=== PATIENT | male | born 1975 | race Caucasian/White ===

== ENCOUNTER 2020-04-23 15:16 | Emergency (ER) | payer SELFPAY ==
[2020-04-23 15:21] VITALS: BP 124/71; PULSE 98; TEMP 97.8; BMI 28.0
--- NOTE | 2020-04-23 15:35 | PDOC ---
History of Present Illness - General Chief Complaint: RX Refill Stated Complaint: SENT BY PCP Time Seen by Provider: 04/23/20 15:21 History Source: Patient Exam Limitations: No Limitations - History of Present Illness Initial Comments: 04/23/20 15:29 45 year old male with pmhx of opioid abuse. Presented to the ED complaining of missing his methadone clinic appointment. Patient states that due to family issues he was not able to receive his 30mg methadone from the clinic this morning. Patient is requesting methadone. Patient did not have his methadone clinic ID card with him. Pt otherwise denies: fevers, chills, syncope, lightheadedness, dizziness, headaches, neck pain, chest pain, shortness of breath, palpitations, back pain, abdominal pain, nausea, vomiting, diarrhea, constipation. 04/23/20 20:49 Past History - Medical History Allergies/Adverse Reactions: Allergies Allergy/AdvReac Type Severity Reaction Status Date / Time No Known Allergies Allergy Verified 04/23/20 15:19 Home Medications: Ambulatory Orders Ibuprofen 800 mg PO Q8H PRN #12 tablet 11/01/19 COPD: No - Psycho-Social/Smoking History Smoking History: Current every day smoker Number of Cigarettes Smoked Daily: 10 Information on smoking cessation initiated: No - Substance Abuse Hx (Audit-C & DAST Scrn) How often the patient has a drink containing alcohol: Never Score: In Men: 4 or > Positive; In Women: 3 or > Positive: 0 Screen Result (Pos requires Nsg. Audit-10AR): Negative In the last yr the pt used illegal drug/Rx for NonMed reason: No Score: Yes response is considered Positive: 0 Screen Result (Positive result requires Nsg. DAST-10): Negative *Physical Exam - Vital Signs Last Vital Signs Temp Pulse Resp BP Pulse Ox 97.8 F 98 H 18 124/71 99 04/23/20 15:19 04/23/20 15:19 04/23/20 15:19 04/23/20 15:19 04/23/20 15:19 - Physical Exam 04/23/20 15:35 Gen: AAOx 3, no acute distress, comfortable, no signs of respiratory distress HENT: atraumatic, normocephalic with no laceration or contusion. Nasal mucosa without erythema. Oropharynx without erythema or exudates. Mucous membranes moist. EYES: PERRL, EOM intact, conjunctiva pink NECK: supple; trachea midline; no JVD, no lymphadenopathy, or thyromegaly CV: RRR no murmurs, gallops, or rubs. CHEST: CTA b/l no wheezing, rales or rhonchi ABD: +BS/ND. no TTP; soft, no rebound, no guarding EXTREMITY: no cyanosis or erythema. 2+ dorsalis pedis, posterior tibial, and radial pulse. No pedal edema; no calf swelling or tenderness SKIN: no rash, warm and dry, no diaphoresis HEME: no purpura or ecchymosis NEURO: normal speech, CN II-XII intact, sensation intact, normal gait, no cerebellar deficits MS: 5/5 strength in all extremities, FROM intact in all extremities. Medical Decision Making - Medical Decision Making 04/23/20 15:35 45-year-old male requesting methadone Vital signs stable Several attempts made to contact methadone clinic but they were closed I am unable to verify the patient's dose and whether or not he received it today. There is no acute intervention warranted in the ED at this time Patient instructed to follow-up with the methadone clinic tomorrow Pt appears well and is safe and stable for discharge with strict return precautions including signs and symptoms requring immediate return to the ED Supportive care instructions explained and given to pt. Reasons to return emergently to ER explained and given. Importance of follow up with PMD and other specialists as indicated stressed to pt. Pt verbalized understanding of instructions. Pt to follow up with PMD in 2 days. Discharge - Discharge Information Problems reviewed: Yes Clinical Impression/Diagnosis: Medication refill Condition: Stable Disposition: HOME - Follow up/Referral - Patient Discharge Instructions Patient Printed Discharge Instructions: Methadone Additional Instructions: PLEASE GO TO YOUR CLINIC APPOINTMENT TOMORROW - Post Discharge Activity
[2020-04-23] MEDS ORDERED: ONDANSETRON 4 MG TABLET PO ONE ×2 (15:53→15:54)
== END 2020-04-23 15:56 | disposition home or self-care (01) ==
LOC: JERFT 15:16
DX: Z76.0 Encounter for issue of repeat prescription (principal)
CPT/HCPCS: 99281-25

== ENCOUNTER 2022-02-03 12:13 | Inpatient (IN) | payer OTHER ==
[2022-02-03 12:58] VITALS: BMI 28.1
[2022-02-03] MEDS ORDERED: BISMUTH SUBSALICYLATE 262 MG/15 ML BTL PO PRN (13:23)
[2022-02-03] MEDS ORDERED: NALOXONE HCL (KLOXXADO) 8 MG SPRAY NS PRN (13:23)
[2022-02-03] MEDS ORDERED: MAG HYDROX/AL HYDROX/SIMETH 30 ML UNIT-DOSE CUP PO PRN (13:23)
[2022-02-03] MEDS ORDERED: MAGNESIUM CITRATE 300 ML BOTTLE PO PRN (13:23)
[2022-02-03] MEDS ORDERED: ONDANSETRON *ODT* 4 MG TABLET SL PRN (13:23)
[2022-02-03] MEDS ORDERED: DICYCLOMINE HCL 10 MG CAPSULE PO PRN (13:23)
[2022-02-03] MEDS ORDERED: IBUPROFEN 400 MG TABLET (FP) PO PRN (13:23)
[2022-02-03] MEDS ORDERED: LOPERAMIDE HCL 2 MG CAPSULE PO PRN (13:23)
[2022-02-03] MEDS ORDERED: cloNIDine HCL 0.1 MG TABLET PO PRN (13:23)
[2022-02-03] MEDS ORDERED: MAGNESIUM HYDROX 2400MG/30ML ORAL SUSPENSION 30 ML CUP PO PRN (13:23)
[2022-02-03] MEDS ORDERED: NICOTINE 10 MG CARTRIDGE (INHALER) IH PRN (13:23)
[2022-02-03] MEDS ORDERED: NICOTINE POLACRILEX 2 MG GUM BUC PRN (13:23)
[2022-02-03] MEDS ORDERED: IBUPROFEN 600 MG TABLET (FP) PO PRN (13:23)
[2022-02-03] MEDS ORDERED: BENZOCAINE/MENTHOL (CHLORASEPTIC ) LOZENGE MM PRN (13:23)
[2022-02-03] MEDS ORDERED: diazePAM 5 MG TABLET PO PRN (13:23)
[2022-02-03] MEDS ORDERED: methaDONE HCL 10 MG TABLET (FOR DETOX USE ONLY) PO ONE (13:23)
[2022-02-03] MEDS ORDERED: ACETAMINOPHEN 325 MG TABLET (FP) PO PRN ×2 (13:23)
[2022-02-03] MEDS: THIAMINE HCL 100 MG TABLET (FP) PO SCH (22:54)
[2022-02-03] MEDS: MELATONIN 5 MG TABLETS PO SCH (22:54)
[2022-02-03] MEDS: diazePAM 5 MG TABLET PO SCH ×2 (22:54→23:31)
[2022-02-03] MEDS: hydrOXYzine PAMOATE 25 MG CAPSULE (FP) PO SCH ×2 (22:55→23:32)
[2022-02-04] MEDS: diazePAM 5 MG TABLET PO SCH ×4 (07:22→23:08)
[2022-02-04] MEDS: hydrOXYzine PAMOATE 25 MG CAPSULE (FP) PO SCH ×5 (07:22→23:08)
[2022-02-04] MEDS ORDERED: methaDONE HCL 10 MG TABLET PO ONE (08:24)
[2022-02-04] MEDS ORDERED: methaDONE 40 MG, methaDONE 20 MG PO ONE (09:15)
[2022-02-04] MEDS ORDERED: methaDONE HCL 10 MG TABLET ONE (09:43)
[2022-02-04] MEDS ORDERED: methaDONE HCL 40 MG DISPERSABLE TABLET ONE (09:43)
[2022-02-04] MEDS: PRENATAL VITAMINS W/ FOLIC ACID TABLET (FP) PO SCH (10:20)
[2022-02-04 10:43] LABS: CALCIUM 9.2 mg/dL (8.5-10.1); HEMATOCRIT 40.8 % (35.4-49); HEMOGLOBIN 13.3 GM/dL (11.7-16.9); MCH 27.5 pg (25.7-33.7); MCHC 32.7 g/dl (32.0-35.9); MEAN CELL VOLUME 84.1 fl (80-96); MEAN PLT VOLUME 9.6 fl (7.5-11.1); PLATELET COUNT 241 10^3/uL (134-434); RBC 4.85 M/mm3 (4.00-5.60); RDW 14.1 % (11.9-15.9); WHITE BLOOD COUNT 5.1 K/mm3 (4.0-10.0)
[2022-02-04 10:44] LABS: ALBUMIN 3.6 g/dl (3.4-5.0); BLOOD UREA NITROGEN 15.2 mg/dL (7-18)
[2022-02-04 10:47] LABS: CREATININE 0.7 mg/dL (0.55-1.3)
[2022-02-04 10:48] LABS: BILIRUBIN,TOTAL 0.5 mg/dL (0.2-1); TOT PROT 7.6 g/dl (6.4-8.2)
[2022-02-04] MEDS ORDERED: PENICILLIN G BENZATHINE 2,400,000 UNIT/4 ML PFS IM ONE (11:09)
[2022-02-04] MEDS: MELATONIN 5 MG TABLETS PO SCH (23:09)
[2022-02-04] MEDS: THIAMINE HCL 100 MG TABLET (FP) PO SCH (23:09)
[2022-02-05] MEDS: diazePAM 5 MG TABLET PO SCH ×3 (06:04→22:41)
[2022-02-05] MEDS: hydrOXYzine PAMOATE 25 MG CAPSULE (FP) PO SCH ×5 (06:04→22:42)
[2022-02-05] MEDS: METHOCARBAMOL 500 MG TABLET PO PRN (09:22)
[2022-02-05] MEDS ORDERED: methaDONE HCL 10 MG TABLET (FOR DETOX USE ONLY) PO ONE (10:00)
[2022-02-05] MEDS: PRENATAL VITAMINS W/ FOLIC ACID TABLET (FP) PO SCH (10:35)
[2022-02-05] MEDS: THIAMINE HCL 100 MG TABLET (FP) PO SCH (22:42)
[2022-02-05] MEDS: MELATONIN 5 MG TABLETS PO SCH (22:42)
[2022-02-06] MEDS: METHOCARBAMOL 500 MG TABLET PO PRN ×2 (06:19→11:23)
[2022-02-06] MEDS: diazePAM 5 MG TABLET PO SCH ×2 (06:19→17:59)
[2022-02-06] MEDS: hydrOXYzine PAMOATE 25 MG CAPSULE (FP) PO SCH ×4 (06:19→17:59)
[2022-02-06] MEDS ORDERED: methaDONE HCL 10 MG TABLET PO SCH (07:45)
[2022-02-06] MEDS ORDERED: methaDONE HCL 40 MG DISPERSABLE TABLET ONE (08:00)
[2022-02-06] MEDS ORDERED: methaDONE HCL 10 MG TABLET ONE (08:00)
[2022-02-06] MEDS: methaDONE 40 MG, methaDONE 20 MG PO SCH (08:01)
[2022-02-06] MEDS: PRENATAL VITAMINS W/ FOLIC ACID TABLET (FP) PO SCH (11:04)
[2022-02-07] MEDS: MELATONIN 5 MG TABLETS PO SCH (00:17)
[2022-02-07] MEDS: hydrOXYzine PAMOATE 25 MG CAPSULE (FP) PO SCH ×3 (00:17→09:56)
[2022-02-07] MEDS: THIAMINE HCL 100 MG TABLET (FP) PO SCH (00:18)
[2022-02-07] MEDS ORDERED: methaDONE HCL 10 MG TABLET ONE (04:36)
[2022-02-07] MEDS ORDERED: methaDONE HCL 40 MG DISPERSABLE TABLET ONE (04:36)
[2022-02-07] MEDS ORDERED: diazePAM 5 MG TABLET PO ONE (06:00)
[2022-02-07] MEDS: methaDONE 40 MG, methaDONE 20 MG PO SCH (06:30)
[2022-02-07 09:27] VITALS: BP 124/71; PULSE 68; TEMP 96.9
[2022-02-07] MEDS: PRENATAL VITAMINS W/ FOLIC ACID TABLET (FP) PO SCH (09:56)
[2022-02-07] MEDS ORDERED: methaDONE HCL 10 MG TABLET (FOR DETOX USE ONLY) PO ONE (10:00)
== END 2022-02-07 10:40 | disposition home or self-care (01) | DRG 773 ==
LOC: YASAS 12:13 → Y6N 17:18
PROVIDERS: ADMIT Allergy & Immunology; ATTEND Surgery
PROC: HZ2ZZZZ Detoxification Services for Substance Abuse Treatment (ICD-10-PCS; principal; 2022-02-03)
DX: F10.230 Alcohol dependence with withdrawal, uncomplicated (principal); F13.20 Sedative, hypnotic or anxiolytic dependence, uncomplicated; F11.20 Opioid dependence, uncomplicated; F14.20 Cocaine dependence, uncomplicated; F17.210 Nicotine dependence, cigarettes, uncomplicated; F41.1 Generalized anxiety disorder; F32.A Depression, unspecified; Z86.19 Personal history of other infectious and parasitic diseases
CPT/HCPCS: 36415; 80053; 82962; 85027; 86593; 86780; 93005; 93010; C9803-CS; U0003; U0005

== ENCOUNTER 2022-02-07 11:30 | Inpatient (IN) | payer OTHER ==
[2022-02-07] MEDS ORDERED: MAGNESIUM CITRATE 300 ML BOTTLE PO PRN (12:21)
[2022-02-07] MEDS ORDERED: guaiFENesin 200 MG/10 ML 10 ML UNIT-DOSE CUPS PO PRN (12:21)
[2022-02-07] MEDS ORDERED: NICOTINE POLACRILEX 2 MG GUM BUC PRN (12:21)
[2022-02-07] MEDS ORDERED: P-EPHED 60MG/TRIPROLIDI 2.5MG TABLET PO PRN (12:21)
[2022-02-07] MEDS ORDERED: MAGNESIUM HYDROX 2400MG/30ML ORAL SUSPENSION 30 ML CUP PO PRN (12:21)
[2022-02-07] MEDS ORDERED: MAG HYDROX/AL HYDROX/SIMETH 30 ML UNIT-DOSE CUP PO PRN (12:21)
[2022-02-07] MEDS: MELATONIN 5 MG TABLETS PO SCH (21:03)
[2022-02-07] MEDS: THIAMINE HCL 100 MG TABLET (FP) PO SCH (21:03)
[2022-02-07] MEDS: ACETAMINOPHEN 325 MG TABLET (FP) PO PRN (21:04)
[2022-02-08] MEDS ORDERED: methaDONE HCL 10 MG TABLET ONE (05:15)
[2022-02-08] MEDS ORDERED: methaDONE HCL 40 MG DISPERSABLE TABLET ONE (05:16)
[2022-02-08] MEDS ORDERED: methaDONE HCL 40 MG DISPERSABLE TABLET PO SCH (06:00)
[2022-02-08] MEDS: methaDONE 40 MG, methaDONE 20 MG PO SCH (06:39)
[2022-02-08] MEDS: ACETAMINOPHEN 325 MG TABLET (FP) PO PRN ×2 (06:59→17:49)
[2022-02-08] MEDS: PRENATAL VITAMINS W/ FOLIC ACID TABLET (FP) PO SCH (10:06)
[2022-02-08] MEDS: NICOTINE 7 MG/24 HOURS TOPICAL PATCH TD SCH (10:07)
[2022-02-08] MEDS: hydrOXYzine PAMOATE 25 MG CAPSULE (FP) PO PRN ×2 (10:07→17:57)
[2022-02-08] MEDS: THIAMINE HCL 100 MG TABLET (FP) PO SCH (21:14)
[2022-02-08] MEDS: MELATONIN 5 MG TABLETS PO SCH (21:14)
[2022-02-09] MEDS: ACETAMINOPHEN 325 MG TABLET (FP) PO PRN (00:28)
[2022-02-09] MEDS ORDERED: methaDONE HCL 40 MG DISPERSABLE TABLET ONE (03:13)
[2022-02-09] MEDS ORDERED: methaDONE HCL 10 MG TABLET ONE (03:13)
[2022-02-09] MEDS: methaDONE 40 MG, methaDONE 20 MG PO SCH (06:28)
[2022-02-09] MEDS: NICOTINE 7 MG/24 HOURS TOPICAL PATCH TD SCH (09:57)
[2022-02-09] MEDS: hydrOXYzine PAMOATE 25 MG CAPSULE (FP) PO PRN ×2 (09:59→21:01)
[2022-02-09] MEDS: IBUPROFEN 400 MG TABLET (FP) PO PRN ×2 (09:59→21:01)
[2022-02-09] MEDS: PRENATAL VITAMINS W/ FOLIC ACID TABLET (FP) PO SCH (10:00)
[2022-02-09] MEDS: NICOTINE 10 MG CARTRIDGE (INHALER) IH PRN (14:40)
[2022-02-09] MEDS: THIAMINE HCL 100 MG TABLET (FP) PO SCH (21:00)
[2022-02-09] MEDS: MIRTAZAPINE 15 MG TABLET (FP) PO SCH (21:01)
[2022-02-10] MEDS ORDERED: methaDONE HCL 40 MG DISPERSABLE TABLET ONE (03:20)
[2022-02-10] MEDS ORDERED: methaDONE HCL 10 MG TABLET ONE (03:20)
[2022-02-10] MEDS: methaDONE 40 MG, methaDONE 20 MG PO SCH (07:22)
[2022-02-10] MEDS: PRENATAL VITAMINS W/ FOLIC ACID TABLET (FP) PO SCH (10:49)
[2022-02-10] MEDS: NICOTINE 7 MG/24 HOURS TOPICAL PATCH TD SCH (10:49)
[2022-02-10] MEDS: THIAMINE HCL 100 MG TABLET (FP) PO SCH (21:41)
[2022-02-10] MEDS: MIRTAZAPINE 15 MG TABLET (FP) PO SCH (21:41)
[2022-02-10] MEDS: hydrOXYzine PAMOATE 25 MG CAPSULE (FP) PO PRN (21:42)
[2022-02-11] MEDS ORDERED: methaDONE HCL 10 MG TABLET ONE (04:05)
[2022-02-11] MEDS ORDERED: methaDONE HCL 40 MG DISPERSABLE TABLET ONE (04:06)
[2022-02-11] MEDS: methaDONE 40 MG, methaDONE 20 MG PO SCH (07:02)
[2022-02-11] MEDS: hydrOXYzine PAMOATE 25 MG CAPSULE (FP) PO PRN ×2 (09:45→21:26)
[2022-02-11] MEDS: PRENATAL VITAMINS W/ FOLIC ACID TABLET (FP) PO SCH (09:45)
[2022-02-11] MEDS: NICOTINE 7 MG/24 HOURS TOPICAL PATCH TD SCH (09:45)
[2022-02-11] MEDS ORDERED: PENICILLIN G BENZATHINE 2,400,000 UNIT/4 ML PFS IM ONE (12:17)
[2022-02-11] MEDS: NICOTINE 10 MG CARTRIDGE (INHALER) IH PRN (12:46)
[2022-02-11] MEDS: THIAMINE HCL 100 MG TABLET (FP) PO SCH (21:25)
[2022-02-11] MEDS: MIRTAZAPINE 15 MG TABLET (FP) PO SCH (21:26)
[2022-02-12] MEDS: LOPERAMIDE HCL 2 MG CAPSULE PO PRN ×2 (01:56→10:49)
[2022-02-12] MEDS ORDERED: methaDONE HCL 10 MG TABLET ONE (03:12)
[2022-02-12] MEDS ORDERED: methaDONE HCL 40 MG DISPERSABLE TABLET ONE (03:12)
[2022-02-12] MEDS ORDERED: TRIMETHOBENZAMIDE HCL 200MG/2ML INJ IM ONE (07:30)
[2022-02-12] MEDS: methaDONE 40 MG, methaDONE 20 MG PO SCH (10:49)
[2022-02-12] MEDS: NICOTINE 7 MG/24 HOURS TOPICAL PATCH TD SCH (10:50)
[2022-02-12] MEDS: PRENATAL VITAMINS W/ FOLIC ACID TABLET (FP) PO SCH (10:50)
[2022-02-12] MEDS: hydrOXYzine PAMOATE 25 MG CAPSULE (FP) PO PRN (22:01)
[2022-02-12] MEDS: MIRTAZAPINE 15 MG TABLET (FP) PO SCH (22:01)
[2022-02-12] MEDS: THIAMINE HCL 100 MG TABLET (FP) PO SCH (22:01)
[2022-02-13] MEDS ORDERED: methaDONE HCL 10 MG TABLET ONE (03:55)
[2022-02-13] MEDS ORDERED: methaDONE HCL 40 MG DISPERSABLE TABLET ONE (03:55)
[2022-02-13] MEDS: methaDONE 40 MG, methaDONE 20 MG PO SCH (06:05)
[2022-02-13] MEDS: NICOTINE 7 MG/24 HOURS TOPICAL PATCH TD SCH (09:54)
[2022-02-13] MEDS: PRENATAL VITAMINS W/ FOLIC ACID TABLET (FP) PO SCH (10:06)
[2022-02-13] MEDS: hydrOXYzine PAMOATE 25 MG CAPSULE (FP) PO PRN ×2 (14:14→21:09)
[2022-02-13] MEDS: THIAMINE HCL 100 MG TABLET (FP) PO SCH (21:08)
[2022-02-13] MEDS: MIRTAZAPINE 15 MG TABLET (FP) PO SCH (21:08)
[2022-02-14] MEDS ORDERED: methaDONE HCL 10 MG TABLET ONE (03:31)
[2022-02-14] MEDS ORDERED: methaDONE HCL 40 MG DISPERSABLE TABLET ONE (03:31)
[2022-02-14] MEDS: methaDONE 40 MG, methaDONE 20 MG PO SCH (06:08)
[2022-02-14] MEDS: PRENATAL VITAMINS W/ FOLIC ACID TABLET (FP) PO SCH (10:04)
[2022-02-14] MEDS: hydrOXYzine PAMOATE 25 MG CAPSULE (FP) PO PRN ×2 (10:04→21:15)
[2022-02-14] MEDS: NICOTINE 7 MG/24 HOURS TOPICAL PATCH TD SCH (10:04)
[2022-02-14] MEDS: NICOTINE 10 MG CARTRIDGE (INHALER) IH PRN (19:43)
[2022-02-14] MEDS: SUVOREXANT 5 MG TABLET PO PRN (21:14)
[2022-02-14] MEDS: MIRTAZAPINE 15 MG TABLET (FP) PO SCH (21:15)
[2022-02-14] MEDS: THIAMINE HCL 100 MG TABLET (FP) PO SCH (21:15)
[2022-02-15] MEDS ORDERED: methaDONE HCL 10 MG TABLET ONE (05:59)
[2022-02-15] MEDS ORDERED: methaDONE HCL 40 MG DISPERSABLE TABLET ONE (05:59)
[2022-02-15] MEDS ORDERED: methaDONE HCL 10 MG TABLET PO SCH (06:00)
[2022-02-15] MEDS: methaDONE 40 MG, methaDONE 20 MG PO SCH (06:21)
[2022-02-15] MEDS: NICOTINE 7 MG/24 HOURS TOPICAL PATCH TD SCH (10:51)
[2022-02-15] MEDS: PRENATAL VITAMINS W/ FOLIC ACID TABLET (FP) PO SCH (10:51)
[2022-02-15] MEDS: hydrOXYzine PAMOATE 25 MG CAPSULE (FP) PO PRN ×2 (14:41→21:23)
[2022-02-15] MEDS: THIAMINE HCL 100 MG TABLET (FP) PO SCH (21:22)
[2022-02-15] MEDS: MIRTAZAPINE 15 MG TABLET (FP) PO SCH (21:23)
[2022-02-15] MEDS: SUVOREXANT 5 MG TABLET PO PRN (21:23)
[2022-02-16] MEDS ORDERED: methaDONE HCL 10 MG TABLET ONE (03:13)
[2022-02-16] MEDS ORDERED: methaDONE HCL 40 MG DISPERSABLE TABLET ONE (03:13)
[2022-02-16] MEDS: methaDONE 40 MG, methaDONE 20 MG PO SCH (06:10)
[2022-02-16] MEDS: NICOTINE 7 MG/24 HOURS TOPICAL PATCH TD SCH (09:56)
[2022-02-16] MEDS: PRENATAL VITAMINS W/ FOLIC ACID TABLET (FP) PO SCH (09:56)
[2022-02-16] MEDS: hydrOXYzine PAMOATE 25 MG CAPSULE (FP) PO PRN ×2 (16:32→21:07)
[2022-02-16] MEDS: THIAMINE HCL 100 MG TABLET (FP) PO SCH (21:07)
[2022-02-16] MEDS: MIRTAZAPINE 15 MG TABLET (FP) PO SCH (21:07)
[2022-02-17] MEDS ORDERED: methaDONE HCL 40 MG DISPERSABLE TABLET ONE (03:25)
[2022-02-17] MEDS ORDERED: methaDONE HCL 10 MG TABLET ONE (03:25)
[2022-02-17] MEDS: methaDONE 40 MG, methaDONE 20 MG PO SCH (06:12)
[2022-02-17] MEDS: PRENATAL VITAMINS W/ FOLIC ACID TABLET (FP) PO SCH (09:26)
[2022-02-17] MEDS: NICOTINE 7 MG/24 HOURS TOPICAL PATCH TD SCH (09:26)
[2022-02-17] MEDS: hydrOXYzine PAMOATE 25 MG CAPSULE (FP) PO PRN ×2 (14:16→21:24)
[2022-02-17] MEDS: NICOTINE 10 MG CARTRIDGE (INHALER) IH PRN (14:16)
[2022-02-17] MEDS: THIAMINE HCL 100 MG TABLET (FP) PO SCH (21:23)
[2022-02-17] MEDS: ACETAMINOPHEN 325 MG TABLET (FP) PO PRN (21:24)
[2022-02-17] MEDS: MIRTAZAPINE 15 MG TABLET (FP) PO SCH (21:24)
[2022-02-18] MEDS ORDERED: methaDONE HCL 40 MG DISPERSABLE TABLET ONE (03:12)
[2022-02-18] MEDS ORDERED: methaDONE HCL 10 MG TABLET ONE (03:12)
[2022-02-18] MEDS: methaDONE 40 MG, methaDONE 20 MG PO SCH (06:07)
[2022-02-18] MEDS: PRENATAL VITAMINS W/ FOLIC ACID TABLET (FP) PO SCH (10:01)
[2022-02-18] MEDS: NICOTINE 7 MG/24 HOURS TOPICAL PATCH TD SCH (10:01)
[2022-02-18] MEDS ORDERED: PENICILLIN G BENZATHINE 2,400,000 UNIT/4 ML PFS IM ONE (12:18)
[2022-02-18] MEDS ORDERED: hydrOXYzine PAMOATE 50 MG CAPSULE (FP) PO PRN (15:22)
[2022-02-18] MEDS: THIAMINE HCL 100 MG TABLET (FP) PO SCH (21:30)
[2022-02-18] MEDS ORDERED: MIRTAZAPINE 15 MG TABLET (FP) ONE (21:31)
[2022-02-18] MEDS: MIRTAZAPINE 30 MG TABLET PO SCH (21:32)
[2022-02-18] MEDS: hydrOXYzine PAMOATE 50 MG CAPSULE (FP) PO PRN (21:33)
[2022-02-19] MEDS ORDERED: methaDONE HCL 40 MG DISPERSABLE TABLET ONE (03:58)
[2022-02-19] MEDS ORDERED: methaDONE HCL 10 MG TABLET ONE (03:58)
[2022-02-19] MEDS: methaDONE 40 MG, methaDONE 20 MG PO SCH (06:17)
[2022-02-19] MEDS: PRENATAL VITAMINS W/ FOLIC ACID TABLET (FP) PO SCH (10:03)
[2022-02-19] MEDS: NICOTINE 7 MG/24 HOURS TOPICAL PATCH TD SCH (10:03)
[2022-02-19] MEDS ORDERED: MIRTAZAPINE 15 MG TABLET (FP) ONE (18:39)
[2022-02-19] MEDS: THIAMINE HCL 100 MG TABLET (FP) PO SCH (21:14)
[2022-02-19] MEDS: MIRTAZAPINE 30 MG TABLET PO SCH (21:14)
[2022-02-19] MEDS: hydrOXYzine PAMOATE 50 MG CAPSULE (FP) PO PRN (21:15)
[2022-02-20] MEDS ORDERED: methaDONE HCL 10 MG TABLET ONE (03:54)
[2022-02-20] MEDS ORDERED: methaDONE HCL 40 MG DISPERSABLE TABLET ONE (03:55)
[2022-02-20] MEDS: methaDONE 40 MG, methaDONE 20 MG PO SCH (06:14)
[2022-02-20] MEDS: NICOTINE 7 MG/24 HOURS TOPICAL PATCH TD SCH (10:08)
[2022-02-20] MEDS: PRENATAL VITAMINS W/ FOLIC ACID TABLET (FP) PO SCH (10:08)
[2022-02-20] MEDS: hydrOXYzine PAMOATE 50 MG CAPSULE (FP) PO PRN ×2 (12:50→21:05)
[2022-02-20] MEDS ORDERED: MIRTAZAPINE 15 MG TABLET (FP) ONE (18:48)
[2022-02-20] MEDS: THIAMINE HCL 100 MG TABLET (FP) PO SCH (21:04)
[2022-02-20] MEDS: MIRTAZAPINE 30 MG TABLET PO SCH (21:04)
[2022-02-21] MEDS ORDERED: methaDONE HCL 40 MG DISPERSABLE TABLET ONE (03:51)
[2022-02-21] MEDS ORDERED: methaDONE HCL 10 MG TABLET ONE (03:51)
[2022-02-21] MEDS: methaDONE 40 MG, methaDONE 20 MG PO SCH (06:17)
[2022-02-21] MEDS: PRENATAL VITAMINS W/ FOLIC ACID TABLET (FP) PO SCH (10:24)
[2022-02-21] MEDS: NICOTINE 7 MG/24 HOURS TOPICAL PATCH TD SCH (10:24)
[2022-02-21] MEDS: THIAMINE HCL 100 MG TABLET (FP) PO SCH (21:06)
[2022-02-21] MEDS: MIRTAZAPINE 30 MG TABLET PO SCH (21:06)
[2022-02-21] MEDS: hydrOXYzine PAMOATE 50 MG CAPSULE (FP) PO PRN (21:06)
[2022-02-22] MEDS ORDERED: methaDONE HCL 10 MG TABLET ONE (05:58)
[2022-02-22] MEDS ORDERED: methaDONE HCL 40 MG DISPERSABLE TABLET ONE (05:58)
[2022-02-22] MEDS ORDERED: methaDONE 40 MG, methaDONE 20 MG PO SCH (06:00)
[2022-02-22 07:21] VITALS: BP 107/73; PULSE 60; TEMP 98
[2022-02-22] MEDS: NICOTINE 7 MG/24 HOURS TOPICAL PATCH TD SCH (10:13)
[2022-02-22] MEDS: PRENATAL VITAMINS W/ FOLIC ACID TABLET (FP) PO SCH (10:13)
[2022-02-22] MEDS: hydrOXYzine PAMOATE 50 MG CAPSULE (FP) PO PRN (11:10)
[2022-02-22] MEDS: NICOTINE 10 MG CARTRIDGE (INHALER) IH PRN (15:41)
== END 2022-02-22 18:00 | disposition home or self-care (01) | DRG 772 ==
LOC: YASAS 11:30 → Y3E 11:32
PROVIDERS: ADMIT Allergy & Immunology; ATTEND Psychiatry & Neurology Pain Medicine
PROC: HZ42ZZZ Group Counseling for Substance Abuse Treatment, Cognitive-Behavioral (ICD-10-PCS; principal; 2022-02-07)
DX: F10.20 Alcohol dependence, uncomplicated (principal); F11.20 Opioid dependence, uncomplicated; F14.20 Cocaine dependence, uncomplicated; F13.20 Sedative, hypnotic or anxiolytic dependence, uncomplicated; F17.210 Nicotine dependence, cigarettes, uncomplicated; F19.280 Other psychoactive substance dependence with psychoactive substance-induced anxiety disorder; F19.282 Other psychoactive substance dependence with psychoactive substance-induced sleep disorder; F19.24 Other psychoactive substance dependence with psychoactive substance-induced mood disorder; F41.9 Anxiety disorder, unspecified; F32.A Depression, unspecified; M54.50 Low back pain, unspecified; G89.29 Other chronic pain
CPT/HCPCS: 36415; 82947